=== PATIENT | male | born 1970 | race Asian ===

== ENCOUNTER → 2024-07-13 15:21 | Outpatient (REF) | payer OTHER, BC, SELFPAY | LOC: RAD 15:21 | PROVIDERS: ATTENDING PHYSICIAN Physical Medicine & Rehabilitation; FAMILY PHYSICIAN Internal Medicine | DX: M79.89 Other specified soft tissue disorders (principal); S82.035A Nondisplaced transverse fracture of left patella, initial encounter for closed fracture | CPT/HCPCS: 93971 ==